=== PATIENT | female | born 1985 | race Caucasian/White ===

== ENCOUNTER → 2023-06-17 | Outpatient (REF) | payer OTHER ==
[2023-06-17 18:26] LABS: BASO % 0.6 % (0.0-1.0); EOS # 0.1 10^3/uL (0.0-0.5); EOS % 1.1 % (0.0-3.0); HEMATOCRIT 45.5 % (36.0-47.0); HEMOGLOBIN 14.6 g/dl (12.0-15.5); LYMPH # 1.5 10^3/uL (1.5-5.0); LYMPH % 22.8 % (24.0-44.0); MEAN CORPUSCULAR HEMOGLOBIN 28.7 pg (27.0-33.0); MEAN CORPUSCULAR HGB CONC 32.1 g/dl (32.0-36.5); MEAN CORPUSCULAR VOLUME 89.4 fl (80.0-96.0); MONO # 0.4 10^3/uL (0.0-0.8); MONO % 5.7 % (2.0-8.0); NEUTROPHILS # 4.5 10^3/uL (1.5-8.5); NEUTROPHILS % 69.5 % (36.0-66.0); PLATELET COUNT, AUTOMATED 256 10^3/uL (150-450); RED BLOOD COUNT 5.09 10^6/uL (4.00-5.40); WHITE BLOOD COUNT 6.5 10^3/uL (4.0-10.0)
[2023-06-17 18:50] LABS: HEMOGLOBIN A1c 4.9 % (4.0-6.0)
[2023-06-17 18:56] LABS: ALBUMIN 4.1 G/DL (3.2-5.2); ALKALINE PHOSPHATASE 53 U/L (46-116); ALT/SGPT 28 U/L (7.0-40); AST/SGOT 18 U/L (<34); BILIRUBIN,TOTAL 0.5 MG/DL (0.3-1.2); BLOOD UREA NITROGEN 12 MG/DL (9-23); CALCIUM LEVEL 9.9 MG/DL (8.5-10.1); CARBON DIOXIDE LEVEL 28 MMOL/L (20-31); CHLORIDE LEVEL 105 MMOL/L (98-107); CHOLESTEROL LEVEL 209 MG/DL (<200); CHOLESTEROL RISK RATIO 3.65 (<5); CREATININE FOR GFR 0.72 MG/DL (0.55-1.30); GLOMERULAR FILTRATION RATE > 60.0 (>60); GLUCOSE, FASTING 78 MG/DL (60-100); HDL CHOLESTEROL 57.2 MG/DL (>40); LDL CHOLESTEROL 134.6 MG/DL (<100); MAGNESIUM LEVEL 2.2 MG/DL (1.8-2.4); NON-HDL-C 151.8 MG/DL; POTASSIUM SERUM 4.4 MMOL/L (3.5-5.1); SODIUM LEVEL 139 MMOL/L (136-145); THYROID STIMULATING HORMONE 0.957 uIU/ML (0.55-4.78); TOTAL 25(OH) VITAMIN D 20.6 NG/ML (20.0-100.0); TOTAL PROTEIN 7.3 G/DL (5.7-8.2); TRIGLYCERIDES LEVEL 86 MG/DL (<150); VITAMIN B12 LEVEL 547 PG/ML (211-911)
[2023-06-17 19:18] LABS: FOLATE 23.3 NG/ML (>5.4)
== END ==
LOC: M LAB REF 16:46
PROVIDERS: ATTEND Nurse Practitioner Family
DX: R51.9 Headache, unspecified (principal); Z11.9 Encounter for screening for infectious and parasitic diseases, unspecified; R53.83 Other fatigue; E55.9 Vitamin D deficiency, unspecified; E66.3 Overweight

== ENCOUNTER → 2023-06-27 | Outpatient (CLI) | payer OTHER | LOC: M SLEEP HO 11:37 | PROVIDERS: ATTEND Nurse Practitioner Family | DX: G47.9 Sleep disorder, unspecified (principal); R06.83 Snoring ==

== ENCOUNTER → 2023-09-04 | Outpatient (REF) | payer OTHER | LOC: M LAB REF 11:54 | PROVIDERS: ATTEND Nurse Practitioner Family | DX: Z12.4 Encounter for screening for malignant neoplasm of cervix (principal) | CPT/HCPCS: 87624; G0123 ==

== ENCOUNTER → 2024-01-13 | Day surgery (SDC) | payer OTHER ==
[~2024-01-13] VITALS: Ht 160 cm; Wt 94.3 kg
[~2024-01-13] MED LIST: KETOROLAC 60MG 2ML VIAL As Ordered ONE; LABETALOL 100MG/20ML VIAL As Ordered ONE; LIDOCAINE 2% 100MG/5ML SDV (FOR ANES.) As Ordered ONE; LR 1,000 ML IV SCH; MIDAZOLAM INJ 2MG/2ML VIAL As Ordered ONE; ONDANSETRON 4MG 2ML VIAL As Ordered ONE; ROCURONIUM BROMIDE 50MG/5ML VIAL As Ordered ONE; SUGAMMADEX SODIUM 500 MG/5 ML VIAL (BRIDION) As Ordered ONE; dexmedeTOMIDine (4MCG/ML)200MCG/50ML BTL (PRECEDEX) As Ordered ONE; fentaNYL 100 MCG/2 ML INJECTION As Ordered ONE; propofoL 200 MG/20 ML VIAL As Ordered ONE
[2024-01-13 06:29] LABS: HEMOGLOBIN 13.2 g/dl (12.0-15.5); MEAN CORPUSCULAR HEMOGLOBIN 29.3 pg (27.0-33.0); MEAN CORPUSCULAR VOLUME 88.9 fl (80.0-96.0); PLATELET COUNT, AUTOMATED 228 10^3/uL (150-450); WHITE BLOOD COUNT 5.9 10^3/uL (4.0-10.0)
[2024-01-13 06:32] VITALS: TEMP 97.8; O2SAT 100
[2024-01-13 06:47] LABS: HCG, SERUM QUALITATIVE POSITIVE (NEGATIVE)
[2024-01-13 06:58] VITALS: BP 115/58
[2024-01-13] MEDS: SILVER NITRATE APPLICATOR (1 = QTY 10) As Ordered ONE (07:10)
[2024-01-13 07:35] LABS: HCG, SERUM QUANTITATIVE 1338.4 MIU/ML (<4.2)
== END | disposition home or self-care (01) ==
LOC: M SDC 05:57
PROVIDERS: ATTEND Obstetrics & Gynecology
DX: Z30.2 Encounter for sterilization (principal); Z53.09 Procedure and treatment not carried out because of other contraindication; Z32.01 Encounter for pregnancy test, result positive
CPT/HCPCS: 36415; 84702; 84703; 85027; 86850; 86900; 86901; J0665

== ENCOUNTER 2024-03-02 09:43 | Emergency (ER) | payer OTHER ==
[~2024-03-02] VITALS: Ht 160 cm; Wt 92.1 kg
[2024-03-02] MEDS ORDERED: MULTTAB20 PO (09:56)
[2024-03-02 12:04] VITALS: BP 104/62; TEMP 98.5; O2SAT 100
== END 2024-03-02 12:19 | disposition home or self-care (01) ==
LOC: M ED 09:43
DX: S96.911A Strain of unspecified muscle and tendon at ankle and foot level, right foot, initial encounter (principal); S80.02XA Contusion of left knee, initial encounter; X50.0XXA Overexertion from strenuous movement or load, initial encounter; W19.XXXA Unspecified fall, initial encounter; Z79.899 Other long term (current) drug therapy; Y92.481 Parking lot as the place of occurrence of the external cause; Y93.89 Activity, other specified; Y99.1 Military activity; M25.471 Effusion, right ankle

== ENCOUNTER 2024-04-06 09:28 | Day surgery (SDC) | payer OTHER ==
[~2024-04-06] VITALS: Ht 160 cm; Wt 93.9 kg
[~2024-04-06 09:28] MED LIST changes: -KETOROLAC 60MG 2ML VIAL As Ordered ONE; -LABETALOL 100MG/20ML VIAL As Ordered ONE; -LIDOCAINE 2% 100MG/5ML SDV (FOR ANES.) As Ordered ONE; -LR 1,000 ML IV SCH; -MIDAZOLAM INJ 2MG/2ML VIAL As Ordered ONE; +MULTTAB20 PO; -ONDANSETRON 4MG 2ML VIAL As Ordered ONE; -ROCURONIUM BROMIDE 50MG/5ML VIAL As Ordered ONE; -SUGAMMADEX SODIUM 500 MG/5 ML VIAL (BRIDION) As Ordered ONE; +THERTAB52 PO; -dexmedeTOMIDine (4MCG/ML)200MCG/50ML BTL (PRECEDEX) As Ordered ONE; -fentaNYL 100 MCG/2 ML INJECTION As Ordered ONE; -propofoL 200 MG/20 ML VIAL As Ordered ONE
[2024-04-06 10:25] LABS: HCG, SERUM QUALITATIVE NEGATIVE (NEGATIVE)
[2024-04-06 10:41] LABS: HEMATOCRIT 40.6 % (36.0-47.0); HEMOGLOBIN 12.9 g/dl (12.0-15.5); MEAN CORPUSCULAR HEMOGLOBIN 27.4 pg (27.0-33.0); MEAN CORPUSCULAR HGB CONC 31.8 g/dl (32.0-36.5); MEAN CORPUSCULAR VOLUME 86.2 fl (80.0-96.0); PLATELET COUNT, AUTOMATED 251 10^3/uL (150-450); RED BLOOD COUNT 4.71 10^6/uL (4.00-5.40); WHITE BLOOD COUNT 5.4 10^3/uL (4.0-10.0)
[2024-04-06] MEDS ORDERED: LR 1,000 ML IV SCH ×2 (10:45→12:25)
[2024-04-06] MEDS ORDERED: propofoL 200 MG/20 ML VIAL As Ordered ONE (11:18)
[2024-04-06] MEDS ORDERED: LIDOCAINE 2% 100MG/5ML SDV (FOR ANES.) As Ordered ONE (11:18)
[2024-04-06] MEDS ORDERED: ACETAMINOPHEN 1000MG 100ML IV BAG As Ordered ONE (11:18)
[2024-04-06] MEDS ORDERED: ROCURONIUM BROMIDE 50MG/5ML VIAL As Ordered ONE (11:18)
[2024-04-06] MEDS ORDERED: KETOROLAC 60MG 2ML VIAL As Ordered ONE (11:18)
[2024-04-06] MEDS ORDERED: ONDANSETRON 4MG 2ML VIAL As Ordered ONE (11:18)
[2024-04-06] MEDS ORDERED: fentaNYL 100 MCG/2 ML INJECTION As Ordered ONE (11:18)
[2024-04-06] MEDS ORDERED: MIDAZOLAM INJ 2MG/2ML VIAL As Ordered ONE (11:18)
[2024-04-06] MEDS ORDERED: SUGAMMADEX SODIUM 500 MG/5 ML VIAL (BRIDION) As Ordered ONE (11:18)
[2024-04-06] MEDS ORDERED: MORPHINE 10 MG/ML 1ML VIAL As Ordered ONE (11:37)
[2024-04-06] MEDS: SILVER NITRATE APPLICATOR (1 = QTY 10) As Ordered ONE (12:23)
[2024-04-06] MEDS ORDERED: NALOXONE INJ 0.4MG/1ML VIAL As Ordered ONE (12:23)
[2024-04-06] MEDS ORDERED: ONDANSETRON 4MG 2ML VIAL IV PRN ×2 (12:25→14:05)
[2024-04-06] MEDS ORDERED: fentaNYL 100 MCG/2 ML INJECTION IV PRN ×2 (12:25→14:05)
[2024-04-06] MEDS ORDERED: PERC5TAB12 PO (12:47)
[2024-04-06] MEDS ORDERED: MORPHINE 2 MG/ML 1ML VIAL IV PRN (14:05)
[2024-04-06] MEDS ORDERED: oxyCODONE 5MG TAB PO PRN (14:05)
[2024-04-06 14:15] VITALS: BP 129/79; TEMP 97.6; O2SAT 99
== END 2024-04-06 14:30 | disposition home or self-care (01) ==
LOC: M SDC 09:28
PROVIDERS: ATTEND Obstetrics & Gynecology
DX: Z30.2 Encounter for sterilization (principal); K21.9 Gastro-esophageal reflux disease without esophagitis; L40.8 Other psoriasis; G43.909 Migraine, unspecified, not intractable, without status migrainosus
CPT/HCPCS: 36415; 58661; 84703; 85027; 86850; 86900; 86901; 88302; J0131; J0665; J1100; J1885; J2250; J2310; J2405; J3010

== ENCOUNTER → 2024-08-23 | Outpatient (REF) | payer OTHER ==
[~2024-08-23] MED LIST changes: +PERC5TAB12 PO
[2024-08-23 16:31] LABS: BLOOD UREA NITROGEN 8 MG/DL (9-23); CARBON DIOXIDE LEVEL 25 MMOL/L (20-31); CHLORIDE LEVEL 109 MMOL/L (98-107); CHOLESTEROL LEVEL 163 MG/DL (<200); CHOLESTEROL RISK RATIO 3.55 (<5); CREATININE FOR GFR 0.68 MG/DL (0.55-1.30); GLOMERULAR FILTRATION RATE > 60.0 (>60); GLUCOSE, FASTING 96 MG/DL (60-100); HDL CHOLESTEROL 45.9 MG/DL (>40); LDL CHOLESTEROL 90.1 MG/DL (<100); NON-HDL-C 117.1 MG/DL; SODIUM LEVEL 142 MMOL/L (136-145); TRIGLYCERIDES LEVEL 135 MG/DL (<150)
[2024-08-23 16:34] LABS: THYROID STIMULATING HORMONE 1.398 uIU/ML (0.55-4.78)
== END ==
LOC: M LAB REF 14:45
PROVIDERS: ATTEND Nurse Practitioner Family
DX: E66.3 Overweight (principal); E78.2 Mixed hyperlipidemia